=== PATIENT | female | born 1985 | race Caucasian/White ===

== ENCOUNTER 2017-06-14 13:55 | Outpatient (CLI) | payer OTHER ==
[2017-06-14 14:11] LABS: MEAN CORPUSCULAR HEMOGLOBIN 22.9 pg (28.0-34.0); MEAN CORPUSCULAR VOLUME 73.4 fl (80.0-100.0)
== END 2017-06-14 13:56 ==
LOC: LAB 13:55
PROVIDERS: ATTEND Family Medicine
DX: R53.83 Other fatigue (principal); Z12.4 Encounter for screening for malignant neoplasm of cervix
CPT/HCPCS: 36415; 84443; 85027; 88148; G0143

== ENCOUNTER 2017-06-28 08:55 | Outpatient (CLI) | payer OTHER | END 2017-06-28 08:56 | LOC: OUT 08:55 → SUPCPDRO 08:55 → OUT 08:56 | PROVIDERS: ATTEND General Practice | DX: N92.0 Excessive and frequent menstruation with regular cycle (principal); Z30.2 Encounter for sterilization | CPT/HCPCS: 99213 ==

== ENCOUNTER 2017-07-20 11:50 | Outpatient (CLI) | payer OTHER | END 2017-07-20 11:52 | LOC: LAB 11:50 | PROVIDERS: ATTEND Family Medicine | DX: R06.09 Other forms of dyspnea (principal) | CPT/HCPCS: 36415; 85379 ==

== ENCOUNTER 2017-08-02 11:18 | Outpatient (CLI) | payer OTHER ==
--- NOTE | 2017-08-02 14:54 | Diagnostic Imaging Report ---
[facility] [address] [facility].[address] [address] Report Submission Date: Aug 02, 2017 2:30:57 PM CDT Patient Study Name: TAMEKA KWON Date: Aug 02, 2017 11:25:39 AM CDT Modality Type: DX Gender: F Description: CHEST : 81 Institution: [facility] Physician JAVED INGRAM - OP PA and lateral chest CLINICAL HISTORY: Cough for 2 months. History of pneumonia. FINDINGS: Examination of the chest in PA and lateral views with no prior film for comparison demonstrates the lungs to be clear. Cardiovascular and mediastinal silhouettes are normal. Bony thorax is intact. IMPRESSION: Negative chest. Electronically signed on Aug 02, 2017 2:30:57 PM CDT by: Ignacio JORDAN
== END 2017-08-02 11:30 ==
LOC: RAD 11:18
PROVIDERS: ATTEND Family Medicine
DX: R05 Cough (principal)
CPT/HCPCS: 71046

== ENCOUNTER 2017-10-20 12:55 | Outpatient (CLI) | payer OTHER | END 2017-10-20 12:56 | LOC: LABRHC 12:55 | PROVIDERS: ATTEND Family Medicine | DX: R30.0 Dysuria (principal) | CPT/HCPCS: 87086 ==

== ENCOUNTER 2017-12-13 10:42 | Outpatient (CLI) | payer OTHER ==
--- NOTE | 2017-12-13 12:32 | Diagnostic Imaging Report ---
LYLA DUMONT [facility] [address] [facility].[address] [address] Report Submission Date: Dec 13, 2017 12:31:03 PM CDT Patient Study Name: TAMEKA KWON Date: Dec 13, 2017 10:47:11 AM CDT Modality Type: DX Gender: F Description: SPINE : 81 Institution: [facility] Physician: LYLA DUMONT Lumbar spine History: Back pain AP and lateral projections of the lumbar spine demonstrate a very slight leftward curvature. There has been a cholecystectomy. Vertebral body height and intervertebral disc space height is maintained. There is no spondylolisthesis or spondylolysis. Quite small anterior marginal osteophytes are present at L4/5. Impression: There is slight leftward curvature. Small anterior marginal osteophytes are present at L4/5. Otherwise, no osseous abnormality. Electronically signed on Dec 13, 2017 12:31:03 PM CDT by: Sarah JORDNA
== END 2017-12-13 10:43 ==
LOC: RAD 10:42
PROVIDERS: ATTEND Nurse Practitioner Family
DX: M54.40 Lumbago with sciatica, unspecified side (principal)
CPT/HCPCS: 72100

== ENCOUNTER 2018-08-28 11:33 | Outpatient (CLI) | payer OTHER ==
--- NOTE | 2018-08-28 12:38 | Diagnostic Imaging Report ---
JAVED INGRAM [facility] [address] [facility] [address] [address] Report Submission Date: Aug 28, 2018 11:50:29 AM CDT Patient Study Name: TAMEKA KWON Date: Aug 28, 2018 11:35:55 AM CDT Modality Type: DX Gender: F Description: LT HIP 2VIEW COMPLETE : 81 Institution: [facility] Physician: JAVED INGRAM EXAMINATION: LT HIP 2VIEW COMPLETE HISTORY: LEFT HIP PAIN X 6 MONTHS, NKI. PATIENT DENIES CHANCE OF . (Hx) COMPARISON: None FINDINGS: No acute fracture is identified. The femoral heads appear well-seated within their respective acetabula. The hip joint spaces are preserved. The pubic symphysis is intact. The sacroiliac joints appear normal. IMPRESSION: No acute fracture, dislocation, or significant degenerative change identified. Electronically signed on Aug 28, 2018 11:50:29 AM CDT by: Rodger JORDAN
== END 2018-08-28 11:40 ==
LOC: RAD 11:33
PROVIDERS: ATTEND Family Medicine
DX: M25.552 Pain in left hip (principal)

== ENCOUNTER 2018-09-13 10:26 | Outpatient (CLI) | payer OTHER ==
[2018-09-13 12:11] LABS: CANNABINOIDS NEGATIVE ng/mL (< 50); METHYLENEDIOXYMETHAMPHETAMINE NEGATIVE ng/mL (<500)
--- NOTE | 2018-09-15 15:05 | OP Clinic Progress Note ---
CHIEF COMPLAINT: Low back pain. HISTORY OF PRESENT ILLNESS: The patient is a 32-year-old female who presents to the pain clinic for evaluation of chronic low back pain and worsening left lower extremity and hip pain. The patient states she has had low back pain for about 3 years. 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 She denies history of lumbar spine surgery or interventional procedures for back pain. She denies physical therapy or chiropractic therapy. She is currently taking tramadol 50 mg 1-3 times a day with some pain relief. She was taking Flexeril but she discontinued that because it was not giving any pain relief. She takes Celebrex 200 mg a day and last week she was started on gabapentin 300 mg 3 times a day. She has not noticed any relief from the gabapentin at this time. She has had recent x-rays of the back and hip although I only have x-rays of her hip for my review today. She did have an MRI on 09/01/18 and that shows spondylosis with central disc osteophyte subarticular level L5 to S1 and 70% subarticular stenosis. Also, flattening of the ventral epidural space with small annular fissure and mild triangulation of the spinal canal at L4-5 with a small focal protrusion toward the right neural foramen consistent with right L4 exiting nerve root impingement. The patient describes pain as constant, aching, throbbing, stabbing, shooting, burning in character rated a 7/10 intensity. The pain is located in the left low back with radiation to the lateral hip, left hip and posterolateral left thigh to the knee. She denies any pain radiation distal to the knee. The pain is worse with any sort of activity, especially bending, squatting, prolonged standing or walking. The pain is improved with rest, lying down and somewhat with pain medications. She denies saddle anesthesia. She denies weakness in the lower extremities. She denies bowel or bladder incontinence. PAST MEDICAL HISTORY: Includes morbid obesity. PAST SURGICAL HISTORY: Cholecystectomy in 2001. REVIEW OF SYSTEMS: A 14-point review of systems was performed and was positive for low back pain as described in HPI. Also positive for anemia, headaches, heartburn, arthritis, muscle pain. All other systems are negative. SOCIAL HISTORY: The patient is with children. 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 She smokes about half a pack a day on and off for the last 6 years. She uses alcohol rarely. She denies any recreational or illegal drug use. CURRENT MEDICATIONS: Include tramadol 50 mg q. 6h p.r.n.; Celebrex 200 mg daily; omeprazole 20 mg daily and gabapentin 300 mg 3 times a day. More detail on the patients past medical history, medication reconciliation, social history, family history and review of systems are shown in the paper medical chart. PHYSICAL EXAMINATION: VITALS: Blood pressure 147/99, pulse 107, respirations 18, temperature 98 degrees, oxygen saturation 98% on room air. Height: 511. Weight: 310 lbs. GENERAL: The patient is alert and oriented x 4, in no acute distress. She is pleasant and cooperative. She does have morbid obesity. HEENT: Pupils are equal and reactive to light and accommodation. Extraocular muscles intact. No gross abnormalities. CARDIOVASCULAR: Regular rate and rhythm. No murmurs, rubs or gallops. PULMONARY: Lungs are clear to auscultation bilaterally. No rubs, rales or crackles. ABDOMEN: Soft, nontender, nondistended. No masses. No hepatosplenomegaly noted. : Deferred. SKIN: No rashes or lesions observed. MUSCULOSKELETAL: Low back: Lumbar spine is decreased in flexion and extension with pain at end range. Positive JANNY, FAIR and Stinchfields bilaterally for back pain and also left radicular pain on JANNY to the left. Tender to palpation in the left lower lumbar paraspinal muscles and left sacral sulcus. Positive seated slump and straight leg tests on the left. Left hip: Range of motion is normal at the left hip. Negative FAIR, JANNY and Stinchfields for groin pain. No tenderness to palpation at the groin or greater trochanter. NEUROLOGIC: Cranial nerves II-XII grossly intact. Deep tendon reflexes are 1/4 at bilateral patellar, medial hamstring and Achilles tendons symmetrically. Manual muscle testing shows decreased strength in the left lower extremity with 4+/5 for dorsiflexion and knee extension with 5/5 hip flexion, hip abduction, knee flexion and plantar flexion. The manual muscle testing showed strength of 5/5 on the right lower extremity. Sensation to light touch is impaired in the left in the approximate L4 dermatome, otherwise is intact in L2, L3, L5 and S1 dermatomes. Sensation to light touch is intact in the right lower extremity in all dermatomes symmetrically. Seated slump and straight leg raise tests are positive on the left, and negative on the right. Plantar reflexes are downgoing bilaterally. No clonus or fasciculations noted. RADIOLOGY: MRI of lumbar spine without contrast, dated 09/01/18 at [facility]: Impression: 1) Spondylosis with central disc osteophyte subarticular level L5-S1 and 70% subarticular stenosis. 2) Flattening of the ventral epidural space, small annular fissure and mild triangulation of the spinal canal at L4-5 with a small focal protrusion towards right neural foramen correlate to the right L4 exiting nerve root. Findings: Presuming 5 lumbar vertebrae, the conus medullaris terminates at L1-2. There is dehydrated disc and annular bulge with annular fissure at L4-5 and L5- S1. Mild spinal stenosis is suspected. The neural foramen are patent. Upper lumbar levels are normally outlined. No acute marrow edema abnormality to the vertebral bodies. Axial images demonstrate patent spinal canal and neural foramen L1-2, L2-3, and L3-4. L4-5: Subarticular protrusion toward the right neural foramen image 17, series 801 with flattening in the subarticular space. Spinal stenosis at this L4-5 level is less than 50%. Correlate for compromise to the right L4 exiting nerve root. L5-S1: Demonstrates mild facet changes and subarticular bulge, triangulation of the spinal canal with approximate 70% subarticular stenosis noted. The paraspinal soft tissues are symmetric. ASSESSMENT: 1. Chronic low back pain multifactorial. 2. Left lower extremity L4 radiculopathy with sensory changes and mild weakness on physical exam. 3. Lumbar spinal stenosis with disc herniation at the L4-5 level. 4. Lumbar facet arthropathy at L4-5 and L5-S1. 5. Subarticular stenosis at L5-S1 due to mild facet changes with triangulation of the spinal canal. 6. Morbid obesity. PLAN: 1. Schedule L4-5 lumbar interlaminar epidural steroid injection for 2 weeks which is the next date that I am at [facility]. 2. Schedule repeat L4-5 lumbar interlaminar epidural steroid injection for 4 weeks. If the patient is doing well at that visit, that epidural could be canceled or postponed. 3. Physical therapy for treatment of low back pain and lumbar radiculopathy. PT to focus on active modalities, lumbar spine range of motion, core strengthening, Vance type extension based directional preference exercises for left L4 radiculopathy. Develop exercise program. Physical therapy once a week for 4-6 weeks. 4. Tizanidine 4 mg b.i.d. p.r.n. muscle spasms, quantity #60, no refills. 5. Gabapentin 600 mg t.i.d., quantity #90, no refills. Note this is an increase from current gabapentin 300 mg t.i.d. 6. Urine drug screen to be obtained today. 7. Consider Noonan or Percocet for sciatica pain if the patients UDS is appropriately negative. Jamie Dela Cruz M.D. HIRAM/dami Job #[id number] [facility]. [facility] HOSPITALMariam
== END 2018-09-13 10:28 ==
LOC: OUT 10:26
PROVIDERS: ATTEND Physical Medicine & Rehabilitation
DX: M54.5 Low back pain (principal); G89.29 Other chronic pain; M54.16 Radiculopathy, lumbar region; M48.061 Spinal stenosis, lumbar region without neurogenic claudication; M51.26 Other intervertebral disc displacement, lumbar region; M12.88 Other specific arthropathies, not elsewhere classified, other specified site; E66.01 Morbid (severe) obesity due to excess calories
CPT/HCPCS: 80377; 99214; G0481

== ENCOUNTER 2018-10-03 13:28 | Outpatient (CLI) | payer OTHER | END 2018-10-03 13:30 | LOC: OUT 13:28 | PROVIDERS: ATTEND Physical Medicine & Rehabilitation | DX: M54.5 Low back pain (principal); M47.896 Other spondylosis, lumbar region | CPT/HCPCS: 62323 ==

== ENCOUNTER 2018-11-14 11:23 | Outpatient (CLI) | payer OTHER ==
[~2018-11-14 11:23] MED LIST: 0.9 % SODIUM CHLORIDE PF 10 ML VIAL IJ ONE; IOHEXOL 240 MG/ML BOTTLE 50 ML ONE; Lidocaine 1% 5ml 10 MG/ML VIAL ONE; methylPREDNISolone ACETATE 80 MG/ML VIAL IM ONE
== END 2018-11-14 12:10 ==
LOC: OUT 11:23
PROVIDERS: ATTEND Physical Medicine & Rehabilitation
DX: M47.816 Spondylosis without myelopathy or radiculopathy, lumbar region (principal); M54.5 Low back pain
CPT/HCPCS: 62323; J1040

== ENCOUNTER 2019-01-23 14:45 | Outpatient (CLI) | payer OTHER ==
[2019-01-23 15:05] LABS: BASOPHILS % 0.6 % (0.0-1.5); NEUTROPHILS # 7.4 # k/uL (1.4-7.7)
[2019-01-23 16:00] LABS: eGFR (Non-African) > 60
== END 2019-01-23 14:47 ==
LOC: LAB 14:45
PROVIDERS: ATTEND Family Medicine
DX: R41.0 Disorientation, unspecified (principal); R61 Generalized hyperhidrosis; R71.8 Other abnormality of red blood cells
CPT/HCPCS: 36415; 80053; 82728; 83540; 83550; 84443; 85025